=== PATIENT | female | born 1960 | race Caucasian/White ===

== ENCOUNTER 2023-06-26 07:06 | Day surgery (SDC) | payer MEDICARE ==
[~2023-06-26 07:06] MED LIST: Ak-Dilate OPHTHALMIC*** 1.065 ML, Cyclogyl 1% OPHTH SOL 1.065 ML, GATIFLOXACIN 0.5% OPH... OP ONE; BETADINE 5% OPHTHALMIC 30 ML OP ONE; Lactated Ringers 1,000 ML IV SCH; NON-FORMULARY ITEM OP ONE; TETRACAINE 0.5% STERI-UNIT SOL OP ONE; cefUROXime sodium 0.005 GM in Sodium Chloride Flush 30 ML*** 0.5 ML IJ ONE
[2023-06-26] MEDS ORDERED: Lactated Ringers 1,000 ML IV ONE (07:27)
[2023-06-26] MEDS ORDERED: Zofran 4 MG/2 ML VIAL IV PRN (09:00)
[2023-06-26] MEDS ORDERED: ACETAZOLAMIDE 250 MG TABLET PO ONE (09:00)
[2023-06-26] MEDS ORDERED: Epinephrine Preservative Free 1 MG/ML IJ ONE (09:00)
[2023-06-26] MEDS ORDERED: SUBLIMAZE 100 MCG/2 ML ONE (09:24)
[2023-06-26] MEDS ORDERED: DIPRIVAN 200 MG/20 ML IV ONE (09:24)
[2023-06-26] MEDS ORDERED: Versed 2 MG/2 ML Injection ONE (09:24)
[2023-06-26 10:05] VITALS: RESP 16; O2SAT 97
[2023-06-26 10:11] VITALS: BP 163/73; PULSE 79; TEMP 97.6
== END 2023-06-26 10:15 | disposition home or self-care (01) ==
LOC: SDC 07:06
PROVIDERS: ATTEND Ophthalmology
DX: H25.811 Combined forms of age-related cataract, right eye (principal)
CPT/HCPCS: C1780; J0171; J2250; J2704; J3010; A9270-GY

== ENCOUNTER 2023-07-29 07:15 | Day surgery (SDC) | payer MEDICARE ==
[2023-07-29] MEDS ORDERED: Epinephrine Preservative Free 1 MG/ML IJ ONE (07:16)
[2023-07-29 07:54] VITALS: RESP 18
[2023-07-29] MEDS ORDERED: Lactated Ringers 1,000 ML IV SCH (08:00)
[2023-07-29] MEDS ORDERED: Zofran 4 MG/2 ML VIAL IV PRN (09:00)
[2023-07-29] MEDS ORDERED: ACETAZOLAMIDE 250 MG TABLET PO ONE (09:00)
[2023-07-29] MEDS ORDERED: Versed 2 MG/2 ML Injection ONE (09:04)
[2023-07-29] MEDS ORDERED: DIPRIVAN 200 MG/20 ML IV ONE (09:04)
[2023-07-29] MEDS ORDERED: SUBLIMAZE 100 MCG/2 ML ONE (09:15)
[2023-07-29 09:28] VITALS: TEMP 96
[2023-07-29 09:48] VITALS: BP 166/82; PULSE 74; O2SAT 98
== END 2023-07-29 10:00 | disposition home or self-care (01) ==
LOC: SDC 07:15
PROVIDERS: ATTEND Ophthalmology
DX: H25.812 Combined forms of age-related cataract, left eye (principal)
CPT/HCPCS: C1780; J0171; J2250; J2704; J3010; A9270-GY

== ENCOUNTER 2024-08-06 11:51 | Emergency (ER) | payer MEDICARE, OTHER ==
--- NOTE | 2024-08-06 12:11 | ERPHSYRPT ---
- History of Present Illness Time Seen by Provider: 08/06/24 12:11 Source: patient, family Exam Limitations: no limitations Physician History: This is a 64-year-old white female patient of Dr. Hutchinson who feels weak and was coughing over the last 7 days. Her coughing is worse. She has not had a fever. She has been on Keflex for treatment of a urinary tract infection and she has a dose later today and then 2 doses tomorrow. Patient has a history of migraine headaches and hypothyroidism. She denies chest pain. She has not had any nausea vomiting or diarrhea symptoms. She has no abdominal pain. Patient has no history of documented cardiac disease. Timing/Duration: week(s) (1) Activites at Onset: none Pain Radiation: none Severity of Pain-Max: none Severity of Pain-Current: none Sexual intercourse history: non-contributory Modifying Factors: Improves With: coughing Associated Symptoms: denies symptoms Allergies/Adverse Reactions: No Known Drug Allergies Allergy (Verified 08/06/24 12:32) Home Medications: Ergocalciferol (Vitamin D2) [Vitamin D2] 1 tab PO WEEKLY 06/17/23 [History] Levothyroxine Sodium 88 Mcg [Synthroid 88 Mcg] 88 mcg PO DAILY 06/17/23 [History] Travel Risk - International Travel Have you traveled outside of the country in past 3 weeks: No - Emerging Infectious Disease Are you exhibiting symptoms associated with any current EIDs: Yes Symptoms: Cough: New Onset - Review of Systems Constitutional: No Symptoms Eyes: No Symptoms Ears, Nose, & Throat: No Symptoms Respiratory: Cough Cardiac: No Symptoms Abdominal/Gastrointestinal: No Symptoms Genitourinary Symptoms: No Symptoms Musculoskeletal: No Symptoms Skin: No Symptoms Neurological: No Symptoms Psychological: No Symptoms Endocrine: No Symptoms Hematologic/Lymphatic: No Symptoms Immunological/Allergic: No Symptoms All Other Systems: Reviewed and Negative - Past Medical History Pertinent Past Medical History: Yes Neurological History: No Pertinent History ENT History: Glaucoma Cardiac History: No Pertinent History Respiratory History: No Pertinent History Endocrine Medical History: Hypothyroidism Musculoskeletal History: No Pertinent History GI Medical History: No Pertinent History History: No Pertinent History Psycho-Social History: No Pertinent History Female Reproductive Disorders: No Pertinent History - Past Surgical History Past Surgical History: Yes Neuro Surgical History: No Pertinent History Cardiac: No Pertinent History Respiratory: No Pertinent History Gastrointestinal: No Pertinent History Genitourinary: No Pertinent History Musculoskeletal: Orthopedic Surgery Female Surgical History: Section Other Surgical History: right leg - Social History Smoking Status: Never smoker Exposure to second hand smoke: No Drug Use: none - Nursing Vital Signs Nursing Vital Signs: Initial Vital Signs Temperature 96.1 F 08/06/24 12:22 Pulse Rate 101 H 08/06/24 12:22 Respiratory Rate 18 08/06/24 12:22 Blood Pressure 156/114 08/06/24 12:22 O2 Sat by Pulse Oximetry 96 08/06/24 12:22 Pain Scale Pain Intensity 0 - Physical Exam General Appearance: no apparent distress, alert Eye Exam: PERRL/EOMI, eyes nml inspection Ears, Nose, Throat Exam: normal ENT inspection, moist mucous membranes Neck Exam: normal inspection, non-tender, supple, full range of motion Respiratory Exam: normal breath sounds, lungs clear, airway intact, No chest tenderness, No respiratory distress Cardiovascular Exam: regular rate/rhythm, normal heart sounds, normal peripheral pulses Gastrointestinal/Abdomen Exam: soft, normal bowel sounds, No tenderness Pelvic Exam: not done Rectal Exam: not done Back Exam: normal inspection, normal range of motion, No CVA tenderness, No vertebral tenderness Extremity Exam: normal inspection, normal range of motion, pelvis stable Neurologic Exam: alert, oriented x 3, cooperative, bin piler II-XII nml as tested, normal mood/affect, nml cerebellar function, nml station & gait, sensation nml Skin Exam: normal color, warm, dry Lymphatic Exam: No adenopathy SpO2 Interpretation: normal O2 Delivery: Room Air - Course Nursing assessment & vital signs reviewed: Yes Ordered Tests: Active Orders 24 hr Category Date Time Status CHEST 1 VIEW (PORTABLE) Stat Exams 08/06/24 12:58 Completed UA W/RFX UR CULTURE Stat Lab 08/06/24 12:22 Completed Lab/Rad Data: Laboratory Results 08/06/24 08/06/24 08/06/24 Range/Units 13:14 13:14 12:22 Urine Color Yellow (Yellow) Urine Appearance Clear (Clear) Urine pH 6.5 (4.6-8.0) Ur Specific [place] 1.010 (1.005-1.030) Urine Protein Negative (Negative) Urine Glucose (UA) Negative (Negative) mg/dL Urine Ketones 15 A (Negative) Urine Blood Negative (Negative) Urine Nitrite Negative (Negative) Urine Bilirubin Negative (Negative) Urine Urobilinogen 1.0 A (0.2) mg/dL Ur Leukocyte Esterase Negative (Negative) U Hyaline Cast (Auto) NONE SEEN (0-2) /LPF Urine Microscopic RBC 0-2 (0-5) /HPF Urine Microscopic WBC 0-2 (0-5) /HPF Ur Epithelial Cells None Seen (None Seen) /HPF Urine Bacteria None Seen (None Seen) /HPF Urine Culture Reflexed NO (NO) Influenza Type A Ag POSITIVE A (NEGATIVE) Influenza Type B Ag NEGATIVE (NEGATIVE) RSV (PCR) NEGATIVE (NEGATIVE) SARS-CoV-2 (PCR) NEGATIVE (NEGATIVE) Group A Strep Antibody NOT DETECTED (NEGATIVE) - Progress Progress: re-examined, unchanged Air Movement: good Progress Note: 08/06/24 13:31 My medical decision making and the assignment of low complexity to this patient's medical issue today is based on review of the patient's past medical history, review of the patient's medication list, reviewed patient drug allergy list, history present illness and physical findings on examination. The workup in this patient includes chest x-ray, urinalysis and viral swabs. Differential diagnosis includes but is not limited to viral illness, pneumonia 08/06/24 14:02 I interpreted the patient's laboratory data results. Based on laboratory data results, the patient test positive for influenza A. The chest x-ray was interpreted by the radiologist and I reviewed the impression the impression states normal heart and lungs. No new/acute findings Blood Culture(s) Obtained: No Antibiotics given: No Counseled pt/family regarding: lab results, diagnosis, rad results Medical Desision Making - Diagnostic Testing Diagnostic test were ordered, analyzed, and reviewed by me: Yes Radiological Interpretation: Reviewed by me, Teleradiologist Report - Risk of complications The pt has a mod risk of morbidity or mortality based on: Need for prescription drug management - Departure Departure Disposition: Home Clinical Impression: Influenza A H1N1 infection Condition: Stable Critical Care Time: No Referrals: PRAVIN HUTCHINSON DO [Primary Care Provider] - Follow up/PCP as directed Additional Instructions: Drink plenty fluids. Take your medications as prescribed. Call your primary care provider today, 08/06/2024 to make arrangement for follow-up appointment for further evaluation management. Prescriptions: Benzonatate 200 mg PO TID PRN #10 cap PRN Reason: Cough Prednisone 10 mg [Deltasone 10 mg] 10 mg PO TID #12 tablet Oseltamivir 75 mg [Tamiflu 75MG Capsule] 75 mg PO BID #10 cap
[2024-08-06 12:33] VITALS: TEMP 96.1; O2SAT 96
[2024-08-06 12:57] LABS: Appearance Clear (Clear); Bacteria None Seen /HPF (None Seen); Bilirubin Negative (Negative); Blood Negative (Negative); Epithelial Cells None Seen /HPF (None Seen); Glucose, Urine Negative (Negative); Hyaline Casts NONE SEEN /LPF (0-2); Ketones 15 (Negative); Leukocyte Esterase Negative (Negative); Nitrite Negative (Negative); Ph 6.5 (4.6-8.0); Protein,Urine Dip Negative (Negative); RBC 0-2 /HPF (0-5); WBC 0-2 /HPF (0-5)
--- NOTE | 2024-08-06 13:15 | XRAY ---
Indication: Weakness. Cough. Comparison: August 14, 2011 Portable chest again demonstrates normal heart and lungs. Bony thorax intact again with osteopenia and mild degenerative changes. No new/acute findings.
[2024-08-06 13:52] LABS: INFLUENZA B NEGATIVE (NEGATIVE); RESPIRATORY SYNCTIAL VIRUS NEGATIVE (NEGATIVE); SARS-CoV-2 Xpert Express NEGATIVE (NEGATIVE)
[2024-08-06 13:59] LABS: INFLUENZA A POSITIVE (NEGATIVE)
[2024-08-06 14:16] VITALS: BP 136/83; PULSE 83; RESP 10
== END 2024-08-06 14:22 | disposition home or self-care (01) ==
LOC: ED 11:51
DX: J09.X2 Influenza due to identified novel influenza A virus with other respiratory manifestations (principal); R05.9 Cough, unspecified; R53.1 Weakness
CPT/HCPCS: 0241U; 71045; 81001; 87651; 99284; 99283

== ENCOUNTER 2024-09-28 21:05 | Observation (INO) | payer MEDICARE, OTHER ==
[2024-09-28 23:21] LABS: Absolute Neutrophil Ct (ANC) 4.29 x10^3/uL (1.56-6.13); BASOPHIL % 0.6 % (0.1-1.2); Basophil (Absolute #) 0.04 x10^3/uL (0.01-0.08); Eosinophil % 1.9 % (0.7-5.8); Eosinophil (Absolute #) 0.14 x10^3/uL (0.04-0.36); Hematocrit 36.7 % (34.1-44.9); Hemoglobin 12.3 g/dL (11.2-15.7); IMMATURE GRAN # 0.02 x10^3u/L (0.001-0.031); IMMATURE GRAN % 0.3 % (0.001-0.429); Lymphocyte (Absolute #) 2.12 x10^3/uL (1.18-3.74); Lymphocytes % 29.4 % (19.3-51.7); Mean Cell Volume 98.4 fL (79.4-94.8); Mean Corpuscular Hgb Concent. 33.5 g/dL (32.2-35.5); Mean Platelet Volume 11.3 fL (9.4-12.3); Monocyte (Absolute #) 0.59 x10^3/uL (0.24-0.86); Monocytes % 8.2 % (4.7-12.5); Neutrophil % 59.6 % (34.0-71.1); Platelet Count 221 x10^3/uL (182-369); Red Blood Count 3.73 x10^6/uL (3.93-5.22); Red Cell Distribution Width 12.6 % (11.7-14.4); White Blood Count 7.2 x10^3/uL (3.98-10.04)
--- NOTE | 2024-09-28 23:35 | XRAY ---
CLINICAL HISTORY: Paresthesia COMPARISON: None. TECHNIQUE: Multiple axial images are obtained from the skull base to the vertex without contrast. CT scan was performed according to ALARA (as low as reasonable achievable). FINDINGS: No evidence of space occupying lesion, hemorrhage, edema, mass effect, midline shift, extra axial collection, or hydrocephalus is noted. Basal cisterns are symmetric and normal in size and configuration. There are scattered periventricular hypodensities as can be seen with chronic microvascular ischemic changes. The polanco-white matter differentiation is preserved. Visualized paranasal sinuses and mastoid air cells are well aerated. Orbital contents are within normal limits. Bony structures are intact. IMPRESSION: 1. No evidence of acute intracranial abnormality is demonstrated. 2. Chronic microvascular ischemic changes. Electronically Signed by: Mauro Luis MD. (09/28/2024 23:31:06 EST)
[2024-09-28 23:36] LABS: ALBUMIN 3.9 g/dL (3.5-5.0); ANION GAP 11.1 MEQ/L (5-15); BILIRUBIN,TOTAL 0.9 mg/dL (0.2-1.3); Calcium 9.4 mg/dL (8.4-10.2); Creatinine 1 1.11 mg/dL (0.52-1.04); EST GLOMERULAR FILTRATION RATE 55.2 ML/MIN; Potassium 4.6 mmol/L (3.5-5.1)
[2024-09-28 23:48] LABS: NT PRO BNPII 221 pg/mL (<300); TROPONIN < 0.012 ng/mL (0.000-0.033)
[2024-09-29 00:04] LABS: Appearance Clear (Clear); Bacteria None Seen /HPF (None Seen); Bilirubin Negative (Negative); Blood Negative (Negative); Epithelial Cells None Seen /HPF (None Seen); Glucose, Urine Negative (Negative); Hyaline Casts NONE SEEN /LPF (0-2); Ketones Negative (Negative); Leukocyte Esterase Negative (Negative); Nitrite Negative (Negative); Protein,Urine Dip Negative (Negative); RBC 0-2 /HPF (0-5); WBC 0-2 /HPF (0-5)
--- NOTE | 2024-09-29 00:30 | ERPHSYRPT ---
- History of Present Illness Time Seen by Provider: 09/28/24 22:30 Source: patient Exam Limitations: no limitations Patient Subjective Stated Complaint: The left side of my lip will go numb and then my left hand will go numb. Triage Nursing Assessment: Pt ambulated into ER without diff. Pt c/o having a couple episodes this evening where the left side of her lip (by the corner) went numb and then noticed numbness in her left hand. Pt states that she was still able to move her hand and mouth, it just felt asleep. Pt denies any of these symptoms at this time. Pt is speaking clear and appropriate, is alert and oriented x4, denies any headache or loc. Physician History: Patient is a 64-year-old female presents to our ED for evaluation of numbness to her lip face and left upper extremity. Patient states that she is able to move her extremity but it feels as though it is "going to sleep". Patient denies a history of the same. Symptoms lasted several minutes. Patient currently feels "normal. No numbness at the present time. The symptoms were not associated with any neuro cardiovascular symptomology. No associated chest pain or shortness of breath. No nausea vomiting or diaphoresis. No slurred speech. No blurred vision dizziness or headache. Patient currently asymptomatic. She voices no other complaints or concerns at this time. Portions of this note were created with voice recognition technology. There may be grammatical, spelling, punctuation or sound alike errors Timing/Duration: today Severity: moderate Modifying Factors: Improves With: nothing Associated Symptoms: denies symptoms Allergies/Adverse Reactions: No Known Drug Allergies Allergy (Verified 09/28/24 22:47) Home Medications: Ergocalciferol (Vitamin D2) [Vitamin D2] 1 tab PO WEEKLY 06/17/23 [History] Levothyroxine Sodium 88 Mcg [Synthroid 88 Mcg] 88 mcg PO DAILY 06/17/23 [History] Brimonidine Tartrate/Timolol [Brimonidine-Timolol 0.2%-0.5%] 1 drop BID 09/28/24 [History] Dorzolamide HCl/Timolol Maleat [Dorzolamide-Timolol Eye Drops] 1 drop BID 09/28 [History] Latanoprost 1 drop HS 02/18/25 [History] Hx Tetanus, Diphtheria Vaccination/Date Given: Yes Hx Influenza Vaccination/Date Given: Yes Hx Pneumococcal Vaccination/Date Given: Yes Travel Risk - International Travel Have you traveled outside of the country in past 3 weeks: No - Emerging Infectious Disease Are you exhibiting symptoms associated with any current EIDs: No Symptoms: Cough: New Onset - Review of Systems Constitutional: No Symptoms, No Fever, No Chills Eyes: No Symptoms Ears, Nose, & Throat: No Symptoms Respiratory: No Symptoms, No Cough, No Dyspnea Cardiac: No Symptoms, No Chest Pain, No Edema, No Syncope Abdominal/Gastrointestinal: No Symptoms, No Abdominal Pain, No Nausea, No Vomiting, No Diarrhea Genitourinary Symptoms: No Symptoms, No Dysuria Musculoskeletal: No Symptoms, No Back Pain, No Neck Pain Skin: No Symptoms, No Rash Neurological: No Symptoms, No Dizziness, No Focal Weakness, No Sensory Changes Psychological: No Symptoms Endocrine: No Symptoms Hematologic/Lymphatic: No Symptoms Immunological/Allergic: No Symptoms All Other Systems: Reviewed and Negative - Past Medical History Pertinent Past Medical History: Yes Neurological History: No Pertinent History ENT History: Glaucoma Cardiac History: No Pertinent History Respiratory History: No Pertinent History Endocrine Medical History: Hypothyroidism Musculoskeletal History: No Pertinent History GI Medical History: No Pertinent History History: No Pertinent History Psycho-Social History: No Pertinent History Female Reproductive Disorders: No Pertinent History - Past Surgical History Past Surgical History: Yes Neuro Surgical History: No Pertinent History Cardiac: No Pertinent History Respiratory: No Pertinent History Gastrointestinal: No Pertinent History Genitourinary: No Pertinent History Musculoskeletal: Orthopedic Surgery Female Surgical History: Section Other Surgical History: right leg - Social History Smoking Status: Never smoker Exposure to second hand smoke: No Drug Use: none - Social Determinants of Health Will the patient participate in the screening: Yes Do you worry about a steady place to live?: No Do you have any problems with any of the following?: No known problems In the past 12 months,have you had to go without utilities?: No Transportation Issues: No Has anyone in your support network made you feel unsafe?: No Have you or anyone in your house had to go w/o enough food: No - Nursing Vital Signs Nursing Vital Signs: Initial Vital Signs O2 Sat by Pulse Oximetry 98 09/28/24 22:26 Pain Scale Pain Intensity 0 - Physical Exam General Appearance: no apparent distress, alert Eye Exam: PERRL/EOMI, eyes nml inspection Ears, Nose, Throat Exam: normal ENT inspection, TMs normal, pharynx normal, moist mucous membranes Neck Exam: normal inspection, non-tender, supple, full range of motion Respiratory Exam: normal breath sounds, lungs clear, airway intact, No respiratory distress Cardiovascular Exam: regular rate/rhythm, normal heart sounds, normal peripheral pulses Gastrointestinal/Abdomen Exam: soft, normal bowel sounds, No tenderness, No mass Back Exam: normal inspection, normal range of motion, No CVA tenderness, No vertebral tenderness Extremity Exam: normal inspection, normal range of motion, pelvis stable Neurologic Exam: alert, oriented x 3, cooperative, normal mood/affect, nml cerebellar function, nml station & gait, sensation nml, No motor deficits Skin Exam: normal color, warm, dry, No rash Lymphatic Exam: No adenopathy SpO2 Interpretation: normal SpO2: 99 O2 Delivery: Room Air - Course Nursing assessment & vital signs reviewed: Yes EKG Interpreted by Me: RATE (69), Sinus Rhythm, NORMAL AXIS, NORMAL INTERVALS, NORMAL QRS - CT Exams Head CT Interpretation: Tele-radiologist Report (No evidence of acute intracranial abnormality. Chronic microvascular ischemic changes) Ordered Tests: Active Orders 24 hr Category Date Time Status Chainstitch Pants Outseamer STAT Care 09/28/24 22:56 Active EKG-ER Only STAT Care 09/28/24 22:55 Active IV Insertion STAT Care 09/28/24 22:55 Active Pulse Oximetry (ED) STAT Care 09/28/24 22:55 Active CHEST 1 VIEW (PORTABLE) Stat Exams 09/28/24 22:56 Taken HEAD WITHOUT CONTRAST [CT] Stat Exams 09/28/24 22:57 Completed CBC W DIFF Stat Lab 09/28/24 23:19 Completed CMP Stat Lab 09/28/24 23:19 Completed NT PRO BNPII Stat Lab 09/28/24 23:19 Completed TROPONIN Q4H Lab 09/28/24 23:19 Completed TROPONIN Q4H Lab 09/29/24 03:00 Ordered TROPONIN Q4H Lab 09/29/24 07:00 Ordered UA W/RFX UR CULTURE Stat Lab 09/28/24 23:42 Completed Transfer Order Routine Transfer 09/29/24 Ordered Medication Summary Discontinued Medications Generic Name Dose Route Start Last Admin Trade Name Freq PRN Reason Stop Dose Admin Aspirin 324 mg 09/29/24 00:50 Aspirin 81 Mg Tab.Chew PO 09/29/24 00:51 STAT ONE Lab/Rad Data: Laboratory Result Diagrams 09/28/24 23:19 09/28/24 23:19 Laboratory Results 09/28/24 09/28/24 09/28/24 Range/Units 23:42 23:19 23:19 WBC (3.98-10.04) x10^3/uL RBC (3.93-5.22) x10^6/uL Hgb (11.2-15.7) g/dL Hct (34.1-44.9) % MCV (79.4-94.8) fL MCH (25.6-32.2) pg MCHC (32.2-35.5) g/dL RDW (11.7-14.4) % Plt Count (182-369) x10^3/uL MPV (9.4-12.3) fL Gran % (34.0-71.1) % Immature Gran % (Auto) (0.001-0.429) % Nucleat RBC Rel Count (0.00-0.2) % Eos # (Auto) (0.04-0.36) x10^3/uL Immature Gran # (Auto) (0.001-0.031) x10^3u/L Absolute Lymphs (auto) (1.18-3.74) x10^3/uL Absolute Monos (auto) (0.24-0.86) x10^3/uL Absolute Nucleated RBC (0.00-0.012) x10^3u/L Lymphocytes % (19.3-51.7) % Monocytes % (4.7-12.5) % Eosinophils % (0.7-5.8) % Basophils % (0.1-1.2) % Absolute Granulocytes (1.56-6.13) x10^3/uL Basophils # (0.01-0.08) x10^3/uL Sodium 143 (135-145) mmol/L Potassium 4.6 (3.5-5.1) mmol/L Chloride 106 (98-107) mmol/L Carbon Dioxide 31 H (22-30) mmol/L Anion Gap 11.1 (5-15) MEQ/L BUN 19 H (7-17) mg/dL Creatinine 1.11 H (0.52-1.04) mg/dL Estimated GFR 55.2 ML/MIN Glucose 101 (74-106) mg/dL Calcium 9.4 (8.4-10.2) mg/dL Total Bilirubin 0.90 (0.2-1.3) mg/dL AST 26 (14-36) U/L ALT 17 (0-35) U/L Alkaline Phosphatase 81 (38-126) U/L Troponin I < 0.012 (0.000-0.033) ng/mL NT-Pro-B Natriuret Pep 221 (<300) pg/mL Serum Total Protein 7.0 (6.3-8.2) g/dL Albumin 3.9 (3.5-5.0) g/dL Urine Color Yellow (Yellow) Urine Appearance Clear (Clear) Urine pH 6.0 (4.6-8.0) Ur Specific [place] 1.020 (1.005-1.030) Urine Protein Negative (Negative) Urine Glucose (UA) Negative (Negative) mg/dL Urine Ketones Negative (Negative) Urine Blood Negative (Negative) Urine Nitrite Negative (Negative) Urine Bilirubin Negative (Negative) Urine Urobilinogen 1.0 A (0.2) mg/dL Ur Leukocyte Esterase Negative (Negative) U Hyaline Cast (Auto) NONE SEEN (0-2) /LPF Urine Microscopic RBC 0-2 (0-5) /HPF Urine Microscopic WBC 0-2 (0-5) /HPF Ur Epithelial Cells None Seen (None Seen) /HPF Urine Bacteria None Seen (None Seen) /HPF Urine Culture Reflexed NO (NO) 09/28/24 Range/Units 23:19 WBC 7.2 (3.98-10.04) x10^3/uL RBC 3.73 L (3.93-5.22) x10^6/uL Hgb 12.3 (11.2-15.7) g/dL Hct 36.7 (34.1-44.9) % MCV 98.4 H (79.4-94.8) fL MCH 33.0 H (25.6-32.2) pg MCHC 33.5 (32.2-35.5) g/dL RDW 12.6 (11.7-14.4) % Plt Count 221 (182-369) x10^3/uL MPV 11.3 (9.4-12.3) fL Gran % 59.6 (34.0-71.1) % Immature Gran % (Auto) 0.3 (0.001-0.429) % Nucleat RBC Rel Count 0.0 (0.00-0.2) % Eos # (Auto) 0.14 (0.04-0.36) x10^3/uL Immature Gran # (Auto) 0.02 (0.001-0.031) x10^3u/L Absolute Lymphs (auto) 2.12 (1.18-3.74) x10^3/uL Absolute Monos (auto) 0.59 (0.24-0.86) x10^3/uL Absolute Nucleated RBC 0.00 (0.00-0.012) x10^3u/L Lymphocytes % 29.4 (19.3-51.7) % Monocytes % 8.2 (4.7-12.5) % Eosinophils % 1.9 (0.7-5.8) % Basophils % 0.6 (0.1-1.2) % Absolute Granulocytes 4.29 (1.56-6.13) x10^3/uL Basophils # 0.04 (0.01-0.08) x10^3/uL Sodium (135-145) mmol/L Potassium (3.5-5.1) mmol/L Chloride (98-107) mmol/L Carbon Dioxide (22-30) mmol/L Anion Gap (5-15) MEQ/L BUN (7-17) mg/dL Creatinine (0.52-1.04) mg/dL Estimated GFR ML/MIN Glucose (74-106) mg/dL Calcium (8.4-10.2) mg/dL Total Bilirubin (0.2-1.3) mg/dL AST (14-36) U/L ALT (0-35) U/L Alkaline Phosphatase (38-126) U/L Troponin I (0.000-0.033) ng/mL NT-Pro-B Natriuret Pep (<300) pg/mL Serum Total Protein (6.3-8.2) g/dL Albumin (3.5-5.0) g/dL Urine Color (Yellow) Urine Appearance (Clear) Urine pH (4.6-8.0) Ur Specific [place] (1.005-1.030) Urine Protein (Negative) Urine Glucose (UA) (Negative) mg/dL Urine Ketones (Negative) Urine Blood (Negative) Urine Nitrite (Negative) Urine Bilirubin (Negative) Urine Urobilinogen (0.2) mg/dL Ur Leukocyte Esterase (Negative) U Hyaline Cast (Auto) (0-2) /LPF Urine Microscopic RBC (0-5) /HPF Urine Microscopic WBC (0-5) /HPF Ur Epithelial Cells (None Seen) /HPF Urine Bacteria (None Seen) /HPF Urine Culture Reflexed (NO) - Progress Progress: improved Progress Note: I spoke to teleneurologist. She advises hospitalization for TIA/stroke workup. Patient to receive aspirin 325 as well as atorvastatin 40 mg. Patient to be admitted for MRI/MRA without contrast. 09/29/24 00:49 Case discussed with hospitalist accepts admission to observation at 1:27 AM. Plan of care discussed with patient. She agrees to admission to [facility] for further evaluation and treatment. Portions of this note were created with voice recognition technology. There may be grammatical, spelling, punctuation or sound alike errors 64-year-old female presents to emergency department for evaluation of numbness to her face and arm. Physical exam otherwise nonremarkable. CT head negative for acute intracranial pathology. Laboratory workup essentially nonremarkable. Teleneuro consultation feels patient may have experienced a TIA. They are requesting hospitalization for MRI/MRA without contrast. Aspirin 325 administered. Neurologist states that blood pressure in 160s is acceptable/permissive hypertension. Initial troponin negative. Portions of this note were created with voice recognition technology. There may be grammatical, spelling, punctuation or sound alike errors Complexity of problem addressed is moderate acute complicated. No critical care time. Complexity of data reviewed and analyzed is extensive. Test ordered chest reviewed results analyzed and correlated clinically with history and physical exam. Management discussed with hospitalist who accepts admission to observation. Risk of complication and or risk of morbidity/mortality of patient management is high.. Patient requires hospitalization for further evaluation and treatment. Vital stable. Time spent to admit patient is approximately 15 minutes. Plan of care established for shared decision making. No social determinants of health present to impede follow-up. Portions of this note were created with voice recognition technology. There may be grammatical, spelling, punctuation or sound alike errors 09/29/24 01:27 09/29/24 01:29 Counseled pt/family regarding: lab results, diagnosis - Departure Departure Disposition: Observation Clinical Impression: TIA (transient ischemic attack), Numbness Condition: Stable Critical Care Time: No Referrals: PRAVIN HUTCHINSON, [Primary Care Provider] - Follow up/PCP as directed
--- NOTE | 2024-09-29 00:51 | PCM.CONS ---
History of Present Illness - Neuro Consultation Date of Consultation Date: 09/29/24 ED Arrival Date & Time: 09/28/24 21:05 Providers: Attending Provider: ED Provider: GREGORIO ARIAS Consulting Provider: WENDY CHOW MD cc:: The requesting physician will be sent a copy of the consult. - History of Present Illness HPI: The patient is a 64F Physician Signature This document was electronically signed by: Wendy Chow MD 09/29/2024 12:49 AM Consult Cover Page FROM: [employer], Call Back Number: [phone] SUBJECT: Consult Recommendations Date and Time of Report: 09/29/2024 12:49 AM ET Items Contained in this Document: Neurology Consult Note Consult Information Member Facility: [facility] Facility Consult ID: [id number] Facility Time Zone: ET Date and Time of Request: 09-29-2024 12:19 AM ET Requesting Clinician: DR. GREGORIO ARIAS Patient Name: JAMIE LOYD Date of : 1960 Gender: Female Patient identity was confirmed at the beginning of the consult with the patient/family/staff using two personal identifiers: Patient name and Reason for Consult Reason for Consult: Code Stroke TLKW less than 4.5 hours General Chief Complaint: stroke alert Patient Location and Admission Status: ED- Patient is not admitted Family Members and Medical Staff Present During Exam: RN History of Present Illness: Date patient last known well: 09/28/2024 Time patient last known well: 2029 Referring Site: [facility] Referring Provider: Dr. Arias Neurologist evaluation date: 09/29/2024 Neurologist call time: 1222 Neurologist on-cart time: 1226 Neurologist evaluation with patient time: 1226 MS. Loyd is a 64 yo F w/pmhx of cataracts, hypothyroidism who presents for L sided lip numbness and L hand numbness. She reports that her sx onset was slightly after 0830 PM 09/28. The sx onset was abrupt and her sx lasted <10 mins. She denies any weakness, speech changes, vision changes, headache. This has never happened before and she denies ever feeling neuro sx in the past. Otherwise has been in her normal state of health. She does not take any AP/AC. Number of Documented HPI Elements: 4+ Medical History Other Medical History: as noted in HPI Past Procedures: None Pertinent Family History: Non contributory Allergies Allergies: NKDA Medications Anti-Coagulants: None Anti-Platelets: None Other Medications: synthroid Social History Alcohol Use: None Drug Use: None Tobacco Use: None Vital Signs Temperature: Afebrile Blood Pressure (mmHg): 152/92 Heart Rate (bpm): 77 Respiration Rate (/min): 22 O2 Sat (%): 98 POC Glucose(mg/dL): 101 Date and Time: 09/29/2024 12:34:45 AM ET Review Of Systems General, Constitutional: All Negative Neurological: All Negative Psychiatric: All Negative Cardiovascular: All Negative Ears, Nose, Throat: All Negative Respiratory: All Negative Gastrointestinal: All Negative Genitourinary: All Negative Musculoskeletal: All Negative Endocrine: All Negative Hematologic, Lymphatic: All Negative Integumentary: All Negative Ophthalmology: All Negative Allergy, Immunology: All Negative NIH Stroke Scale NIH Stroke Scale Score: 0 1. Level of Consciousness: 0 : alert; keenly responsive. 1a. LOC Questions: 0 : Answers both questions correctly. 1b. LOC Commands: 0 : Performs both tasks correctly. 2. Best Gaze: 0 : Normal. 3. Visual: 0 : No visual loss. 4. Facial Palsy: 0 : Normal symmetrical movements. 5a. Motor Left Arm: 0 : No drift; limb holds 90 (or 45) degrees for full 10 seconds. 5b. Motor Right Arm : 0 : No drift; limb holds 90 (or 45) degrees for full 10 seconds. 6a. Motor Left Le : No drift; leg holds 30-degree position for full 5 seconds. 6b. Motor Right Le : No drift; leg holds 30-degree position for full 5 seconds. 7. Limb Ataxia: 0 : Absent. 8. Sensory: 0 : Normal; no sensory loss. 9. Best Language: 0 : No aphasia; normal. 10. Dysarthria: 0 : Normal. 11. Extinction and inattention (formerly Neglect) : 0 : No abnormality. NIHSS Entry Time: 09/29/2024 12:38:28 AM ET Exam Exam: PHYSICAL EXAMINATION EXAM: Constitutional: appearance normally developed Face: normocephalic and atraumatic Eyes: normal lids, normal conjunctiva Neck: supple Respiratory: normal effort Abdomen: non distended Skin: no rashes, lesions, or ulcers noted Psychiatric: normal mood and normal affect NEUROLOGIC EXAMINATION: Appearance: no acute distress Orientation: awake, alert and oriented x 3 Mental Status: alert Attention: normal Knowledge: appropriate Language: no aphasia Speech: no dysarthria Cranial Nerves: CN 2 - no visual defect on confrontation CN 3, 4, 6 - extra-ocular movements intact CN 5 - facial sensation intact CN 7 - no facial asymmetry CN 8 - intact hearing to voice CN 11 - good shoulder shrug CN 12 - tongue midline Motor: able to hold all limbs AG without any drift Gait: deferred Coordination: no ataxia with finger to nose testing or HTS Sensory: intact and symmetric to light touch Clinician assisting with exam: RN Labs and Imaging Labs available?: Yes WBC (mcL): 7.2 HGB (g/dL): 12.3 PLT (mcL): 221 Na (mEq/L): 143 K (mEq/L): 4.6 Cr (mg/dL): 1.11 CT Brain Findings: No acute changes MRI Brain Findings: Not Applicable Assessment and Recommendations Assessment: MS. Loyd is a 64 yo F w/pmhx of cataracts, hypothyroidism who presents for transient L lip and L hand numbness lasting <10 mins. She denies a history of any neuro sx in the past and does not take any AP/AC. No thrombolytics were administered due to resolution of sx. CTH was done showing no acute pathology. Her ABCD2 score is 2 (age >60 yo and BP >140/90) placing her in the low risk category. Recommendations: Recommend starting patient on ASA 325 mg daily for tx of low risk TIA. Permissive HTN up to SBP of 220mmHg for 24 hours then normalize (SBP < 140 and DBP <90) Check LDL, start atorvastatin 40mg (if LDL > 100, change to Lipitor 80mg) Check A1c (goal < 7%) Bedside dysphagia screen prior to oral intake MRI brain without contrast MRA head and MRA neck TTE Telemetry monitoring The patient will need OP neuro follow up on discharge in 2-4 weeks following discharge from the hospital Stroke risk factor modification, if relevant to patient, discussed including importance of smoking cessation, physical activity, nutrition, addressing sleep apnea, and importance of controlling blood pressure and blood glucose. Thank you for allowing us to participate in this patient's care. Please call [facility] with questions, concerns of change in the patient's neurological condition. This consult was done via secure telemedicine audio/visual platform. Patient identity verified and consent was obtained. Staff that participated with the visit included: DELMIS Geronimo Synchronous Audio-Visual Visit: Patient Consent Obtained?This visit was performed using real-time audio and video connection between my location and the patients location with the assistance of a surrogate at the patients location. Written or verbal consent was obtained from the patient/guardian to perform this visit using synchronous telemedicine technology. Any patient questions regarding the telemedicine interaction were answered. Disposition: Admit patient to telemetry or stroke unit Diagnosis Impression: Transient Ischemic Attack Case discussed with: Dr. Arias Inclusion Criteria Neurological deficit considered to be disabling within 4.5 h of ischemic stroke symptom onset or patient last known well: No BP < 185/110: Yes Glucose > 50 mg/dL: Yes Thrombolysis Recommendation Thrombolysis recommended?: No Reason Thrombolysis not recommended: Outside of window ICD-10 Code ICD-10 Code (Primary): R29.700 : NIHSS score 0 ICD-10 Code: G45.9 : Transient cerebral ischemic attack, unspecified ICD-10 Code: R20.0 : Anesthesia of skin Attestation Interaction Mode: Video & Phone Time of Phone Call : 09-29-2024 12:46 AM ET Time of Video Call : 09-29-2024 12:26 AM ET Interaction Attestation: Clinical telemedicine services delivered using HIPAA- compliant interactive video-audio telecommunications while the patient and the rendering provider were not in the same physical location. Written report was provided to the requesting provider. Evaluation Duration (mins): 30 Lincoln Timer Summary ED Arrival Date and Time: 09-27-2024 10:31 PM ET Date and Time of Request: 09-29-2024 12:19 AM ET Physician Signature This document was electronically signed by: Wendy Chow MD 09/29/2024 12:49 AM Review of Systems - Review of Systems Review of Systems (Narrative): Pertinent positive and negative findings as per HPI. All other systems negative. - Past Medical History Past Medical History: Yes Neurological History: No Pertinent History ENT History: Glaucoma Cardiac History: No Pertinent History Respiratory History: No Pertinent History Endocrine Medical History: Hypothyroidism Musculoskelatal History: No Pertinent History GI Medical History: No Pertinent History History: No Pertinent History Pyscho-Social History: No Pertinent History Reproductive Disorders: No Pertinent History - Past Surgical History Past Surgical History: Yes Neuro Surgical History: No Pertinent History Cardiac History: No Pertinent History Respiratory Surgery: No Pertinent History GI Surgical History: No Pertinent History Genitourinary Surgical Hx: No Pertinent History Musculskeletal Surgical Hx: Orthopedic Surgery Female Surgical History: Section Other Surgical History: right leg - Social History Smoking Status: Never smoker Exposure to second hand smoke: No Alcohol: None Drug Use: none - Social Determinants of Health Will the patient participate in the screening: Yes Do you worry about a steady place to live?: No Do you have any problems with any of the following?: No known problems In the past 12 months,have you had to go without utilities?: No Have you or anyone in your house had to go without enough: No Transportation Issues: No Has anyone in your support network made you feel unsafe?: No Physical Exam - Vital Signs Vital Signs: Vital Signs - 24 hr 09/28/24 09/28/24 09/28/24 22:26 22:27 22:28 Temperature 97.5 F Pulse Rate 82 Respiratory 19 Rate Blood Pressure 190/76 O2 Sat by Pulse 98 98 99 Oximetry 09/28/24 09/28/24 09/28/24 22:30 22:55 23:00 Temperature Pulse Rate 66 73 Respiratory 24 17 Rate Blood Pressure 174/77 148/74 O2 Sat by Pulse 98 97 97 Oximetry 09/28/24 09/28/24 09/29/24 23:13 23:30 00:00 Temperature Pulse Rate 80 68 80 Respiratory 22 16 28 H Rate Blood Pressure 191/76 174/57 151/92 O2 Sat by Pulse 97 97 96 Oximetry 09/29/24 09/29/24 09/29/24 00:30 00:31 00:33 Temperature Pulse Rate 73 87 Respiratory 24 17 Rate Blood Pressure 168/133 181/103 O2 Sat by Pulse 99 97 99 Oximetry - NIHSS Stroke Scale Date Completed: 09/28/24 Time Stroke Scale Completed: 22:43 Results - Labs Lab/Micro Results: Lab Results-Last 24 Hours 09/28/24 09/28/24 09/28/24 Range/Units 23:19 23:19 23:19 WBC 7.2 (3.98-10.04) x10^3/uL RBC 3.73 L (3.93-5.22) x10^6/uL Hgb 12.3 (11.2-15.7) g/dL Hct 36.7 (34.1-44.9) % MCV 98.4 H (79.4-94.8) fL MCH 33.0 H (25.6-32.2) pg MCHC 33.5 (32.2-35.5) g/dL RDW 12.6 (11.7-14.4) % Plt Count 221 (182-369) x10^3/uL MPV 11.3 (9.4-12.3) fL Gran % 59.6 (34.0-71.1) % Immature Gran % (Auto) 0.3 (0.001-0.429) % Nucleat RBC Rel Count 0.0 (0.00-0.2) % Eos # (Auto) 0.14 (0.04-0.36) x10^3/uL Immature Gran # (Auto) 0.02 (0.001-0.031) x10^3u/L Absolute Lymphs (auto) 2.12 (1.18-3.74) x10^3/uL Absolute Monos (auto) 0.59 (0.24-0.86) x10^3/uL Absolute Nucleated RBC 0.00 (0.00-0.012) x10^3u/L Lymphocytes % 29.4 (19.3-51.7) % Monocytes % 8.2 (4.7-12.5) % Eosinophils % 1.9 (0.7-5.8) % Basophils % 0.6 (0.1-1.2) % Absolute Granulocytes 4.29 (1.56-6.13) x10^3/uL Basophils # 0.04 (0.01-0.08) x10^3/uL Sodium 143 (135-145) mmol/L Potassium 4.6 (3.5-5.1) mmol/L Chloride 106 (98-107) mmol/L Carbon Dioxide 31 H (22-30) mmol/L Anion Gap 11.1 (5-15) MEQ/L BUN 19 H (7-17) mg/dL Creatinine 1.11 H (0.52-1.04) mg/dL Estimated GFR 55.2 ML/MIN Glucose 101 (74-106) mg/dL Calcium 9.4 (8.4-10.2) mg/dL Total Bilirubin 0.90 (0.2-1.3) mg/dL AST 26 (14-36) U/L ALT 17 (0-35) U/L Alkaline Phosphatase 81 (38-126) U/L Troponin I < 0.012 (0.000-0.033) ng/mL NT-Pro-B Natriuret Pep 221 (<300) pg/mL Serum Total Protein 7.0 (6.3-8.2) g/dL Albumin 3.9 (3.5-5.0) g/dL Urine Color (Yellow) Urine Appearance (Clear) Urine pH (4.6-8.0) Ur Specific [place] (1.005-1.030) Urine Protein (Negative) Urine Glucose (UA) (Negative) mg/dL Urine Ketones (Negative) Urine Blood (Negative) Urine Nitrite (Negative) Urine Bilirubin (Negative) Urine Urobilinogen (0.2) mg/dL Ur Leukocyte Esterase (Negative) U Hyaline Cast (Auto) (0-2) /LPF Urine Microscopic RBC (0-5) /HPF Urine Microscopic WBC (0-5) /HPF Ur Epithelial Cells (None Seen) /HPF Urine Bacteria (None Seen) /HPF Urine Culture Reflexed (NO) 09/28/24 Range/Units 23:42 WBC (3.98-10.04) x10^3/uL RBC (3.93-5.22) x10^6/uL Hgb (11.2-15.7) g/dL Hct (34.1-44.9) % MCV (79.4-94.8) fL MCH (25.6-32.2) pg MCHC (32.2-35.5) g/dL RDW (11.7-14.4) % Plt Count (182-369) x10^3/uL MPV (9.4-12.3) fL Gran % (34.0-71.1) % Immature Gran % (Auto) (0.001-0.429) % Nucleat RBC Rel Count (0.00-0.2) % Eos # (Auto) (0.04-0.36) x10^3/uL Immature Gran # (Auto) (0.001-0.031) x10^3u/L Absolute Lymphs (auto) (1.18-3.74) x10^3/uL Absolute Monos (auto) (0.24-0.86) x10^3/uL Absolute Nucleated RBC (0.00-0.012) x10^3u/L Lymphocytes % (19.3-51.7) % Monocytes % (4.7-12.5) % Eosinophils % (0.7-5.8) % Basophils % (0.1-1.2) % Absolute Granulocytes (1.56-6.13) x10^3/uL Basophils # (0.01-0.08) x10^3/uL Sodium (135-145) mmol/L Potassium (3.5-5.1) mmol/L Chloride (98-107) mmol/L Carbon Dioxide (22-30) mmol/L Anion Gap (5-15) MEQ/L BUN (7-17) mg/dL Creatinine (0.52-1.04) mg/dL Estimated GFR ML/MIN Glucose (74-106) mg/dL Calcium (8.4-10.2) mg/dL Total Bilirubin (0.2-1.3) mg/dL AST (14-36) U/L ALT (0-35) U/L Alkaline Phosphatase (38-126) U/L Troponin I (0.000-0.033) ng/mL NT-Pro-B Natriuret Pep (<300) pg/mL Serum Total Protein (6.3-8.2) g/dL Albumin (3.5-5.0) g/dL Urine Color Yellow (Yellow) Urine Appearance Clear (Clear) Urine pH 6.0 (4.6-8.0) Ur Specific [place] 1.020 (1.005-1.030) Urine Protein Negative (Negative) Urine Glucose (UA) Negative (Negative) mg/dL Urine Ketones Negative (Negative) Urine Blood Negative (Negative) Urine Nitrite Negative (Negative) Urine Bilirubin Negative (Negative) Urine Urobilinogen 1.0 A (0.2) mg/dL Ur Leukocyte Esterase Negative (Negative) U Hyaline Cast (Auto) NONE SEEN (0-2) /LPF Urine Microscopic RBC 0-2 (0-5) /HPF Urine Microscopic WBC 0-2 (0-5) /HPF Ur Epithelial Cells None Seen (None Seen) /HPF Urine Bacteria None Seen (None Seen) /HPF Urine Culture Reflexed NO (NO) - Radiology Orders Radiology Orders: Radiology Procedures Category Date Time Status CHEST 1 VIEW (PORTABLE) Stat Exams 09/28/24 22:56 Taken HEAD WITHOUT CONTRAST [CT] Stat Exams 09/28/24 22:57 Completed Impressions & Recommendations - ED Arrival Time ED Arrival Date & Time: ED Arrival Date and Time 09/28/24 21:05 Last known well time: - NIHSS IV Thrombolysis Standard of Care: IV thrombolysis as a standard of care in acute stroke discussed with GREGORIO CARABALLO. Risk, benefits, and options of IV thrombolytic therapy for acute ischemic stroke were discussed with the patient/family JAMIE LOYD. We discussed that use of IV tenecteplase is in line with national stroke guidelines. We discussed that risks of IV thrombolytic use include intracranial hemorrhage, other fatal bleeding risks, and angioedema. Alternatives of treatment, including not proceeding with thrombolytic therapy were discussed. - Recommendations Recommendations: -Neuro checks, NIHSS, vital signs monitoring as per post tenecteplase protocol -Repeat non contrast head CT or noncontrast MRI brain 24 hours after IV thrombolyltic administration. -Obtain STAT non contrast head CT if there are new neurological deficits, worsening of current deficits, or with complaint of severe headache. Notify Neurology INGE of changes in neurological exam. -Nicardipine gtt as needed to maintain BP< 180/105 x 24hr post tenecteplase administration. -Monitor for angioedema -SCD's for DVT prophylaxis. Work up: -Basic labs (CBC, BMP, TSH+T4) if not done already. -INR,PTT if not done already -Fasting Lipid Panel and Hgb A1c -Transthroacic echocardiogram [with bubble study] -EKG + Telemetry- monitor for A-FIB Secondary Stroke Prevention -Hold off on antiplatelet therapy x 24 hr post IV thrombolytic therapy Decision to initiate antiplatelet therapy, or anticoagulation if needed, will be based on repeat imaging at 24 hour post thrombolytic administration. -If not medical contraindication, start high intensity statin. Eg. Atrovastatin 80 mg daily Risk Factor Management -HTN control: BP <180/105 for first 24 hr post tenecteplase -If diabetic, optimize glucose control: long term care pharmacist goal HgA1c <7 -HLD control: Long-term goal LDL <70. High intensity statin recommended. Moderate intensity statin in patients > 75 years. -Smoking Alcohol Use Drug use cessation counseling Stroke Rehabilitation: -Physical therapy, occupational therapy, speech therapy consults -Social work and case management consults for help with discharge needs. Impression and recommendation were discussed with Dr. GREGORIO ARIAS Thank you for allowing us to participate in this patient's care. Please call [facility] with questions, concerns, or change in patient's neurological status. This consult was performed via secure telemedicine audio/visual platform with [ ] RN assisting at bedside. Patient identity verified and consent obtained. TIQ recieved at [ ] Neuro Cart Time: Delays in Patient Encounter: Assessment & Plan - Encounter Encounter: "The entirety of this encounter was performed via Telemedicine using audio and visual "
[2024-09-29] MEDS ORDERED: BABY ASPIRIN 81 MG CHEW ONE (01:44)
[2024-09-29] MEDS: BABY ASPIRIN 81 MG CHEW PO ONE (01:45)
[2024-09-29] MEDS ORDERED: TYLENOL 325 MG PO PRN (03:54)
[2024-09-29 04:15] LABS: ANION GAP 12.4 MEQ/L (5-15); Calcium 9.2 mg/dL (8.4-10.2); Creatinine 1 1.03 mg/dL (0.52-1.04); EST GLOMERULAR FILTRATION RATE 60.3 ML/MIN; Potassium 4.5 mmol/L (3.5-5.1)
[2024-09-29 04:21] LABS: Hematocrit 35.1 % (34.1-44.9); Mean Cell Volume 98.3 fL (79.4-94.8); Mean Corpuscular Hemoglobin 33.6 pg (25.6-32.2); Mean Corpuscular Hgb Concent. 34.2 g/dL (32.2-35.5); Mean Platelet Volume 11.5 fL (9.4-12.3); Platelet Count 214 x10^3/uL (182-369); Red Blood Count 3.57 x10^6/uL (3.93-5.22); White Blood Count 6.2 x10^3/uL (3.98-10.04)
[2024-09-29 05:08] LABS: TSH, 3RD Generation 2.833 mIU/L (0.470-4.680)
--- NOTE | 2024-09-29 05:51 | PCM.HP ---
History of Present Illness - Chief Complaint Chief Complaint: lip, hand numbness Date: 09/29/24 History of Present Illness: 64-year-old woman with history of hypothyroidism, who presents with left hand and face numbness. Patient has noted 4-5 episodes throughout the day today of sudden left sided perioral numbness and left hand numbness, with each episode lasting under a minute. No associated weakness, or any other sensory deficits. Denies dysarthria or diplopia. Has not had any further episodes since arriving at the hospital, and no prior history of similar episodes or any other cerebrovascular disease. Denies any recent fevers, cough, sore throat, ear fullness, chest pain, nausea, dysuria, or diarrhea. - Review of Systems All Other Systems: Reviewed and Negative Medications & Allergies Home Medications: Home Medication List Ergocalciferol (Vitamin D2) [Vitamin D2] 1 tab PO WEEKLY 06/17/23 [History Confirmed 09/28/24] Levothyroxine Sodium 88 Mcg [Synthroid 88 Mcg] 88 mcg PO DAILY 06/17/23 [History Confirmed 09/28/24] Brimonidine Tartrate/Timolol [Brimonidine-Timolol 0.2%-0.5%] 1 drop BID 09/28/24 [History Confirmed 09/28/24] Dorzolamide HCl/Timolol Maleat [Dorzolamide-Timolol Eye Drops] 1 drop BID 09/28/24 [History Confirmed 09/28/24] Latanoprost 1 drop HS 09/28/24 [History Confirmed 09/28/24] Allergies/Adverse Reactions: Allergies Allergy/AdvReac Type Severity Reaction Status Date / Time No Known Drug Allergies Allergy Verified 09/28/24 22:47 - Past Medical History Past Medical History: Yes Neurological History: No Pertinent History ENT History: Glaucoma Cardiac History: No Pertinent History Respiratory History: No Pertinent History Endocrine Medical History: Hypothyroidism Musculoskelatal History: No Pertinent History GI Medical History: No Pertinent History History: No Pertinent History Pyscho-Social History: No Pertinent History Reproductive Disorders: No Pertinent History - Past Surgical History Past Surgical History: Yes Neuro Surgical History: No Pertinent History Cardiac History: No Pertinent History Respiratory Surgery: No Pertinent History GI Surgical History: No Pertinent History Genitourinary Surgical Hx: No Pertinent History Musculskeletal Surgical Hx: Orthopedic Surgery Female Surgical History: Section Other Surgical History: right leg Significant Family History: heart disease (Father) - Social History Smoking Status: Never smoker Exposure to second hand smoke: No Alcohol: None Drug Use: none - Social Determinants of Health Will the patient participate in the screening: Yes Do you worry about a steady place to live?: No Do you have any problems with any of the following?: No known problems In the past 12 months,have you had to go without utilities?: No Have you or anyone in your house had to go without enough: No Transportation Issues: No Has anyone in your support network made you feel unsafe?: No Does the patient want assistance with any of the above?: No - Physical Exam Vital Signs: Vital Signs - 24 hr Temp Pulse Resp BP BP Pulse Ox 09/29/24 02:57 98.3 F 78 20 164/72 97 09/29/24 02:00 75 18 173/109 99 09/29/24 01:37 99 09/29/24 01:30 72 17 153/103 98 09/29/24 01:00 72 18 167/97 98 09/29/24 00:33 87 17 181/103 99 09/29/24 00:31 73 24 168/133 97 09/29/24 00:00 80 28 H 151/92 96 09/28/24 23:30 68 16 174/57 97 09/28/24 23:13 80 22 191/76 97 09/28/24 23:00 73 17 148/74 97 09/28/24 22:55 97 09/28/24 22:30 66 24 174/77 98 09/28/24 22:28 97.5 F 82 19 190/76 99 09/28/24 22:27 98 09/28/24 22:26 98 Physical Exam GEN: Sitting up in bed in no acute distress. HENT: Normocephalic, atraumatic. Moist mucous membranes. EYES: Normal inspection, anicteric sclera, extraocular movements intact. NECK: Supple, full range of motion CV: Regular rate and rhythm, no murmurs, no gallops. No JVD or edema. PULM: Clear to auscultation bilaterally, no work of breathing. On room air. ABD: Nondistended, nontender. MSK: No joint effusions, full range of motion SKIN: No rashes, normal color. NEURO: Face symmetric, no focal motor or sensory deficits. PSYCH: Alert, oriented x 3 Results - Labs Lab/Micro Results: Lab Results-Last 24 Hours 09/28/24 09/28/24 09/28/24 Range/Units 23:19 23:19 23:19 WBC 7.2 (3.98-10.04) x10^3/uL RBC 3.73 L (3.93-5.22) x10^6/uL Hgb 12.3 (11.2-15.7) g/dL Hct 36.7 (34.1-44.9) % MCV 98.4 H (79.4-94.8) fL MCH 33.0 H (25.6-32.2) pg MCHC 33.5 (32.2-35.5) g/dL RDW 12.6 (11.7-14.4) % Plt Count 221 (182-369) x10^3/uL MPV 11.3 (9.4-12.3) fL Gran % 59.6 (34.0-71.1) % Immature Gran % (Auto) 0.3 (0.001-0.429) % Nucleat RBC Rel Count 0.0 (0.00-0.2) % Eos # (Auto) 0.14 (0.04-0.36) x10^3/uL Immature Gran # (Auto) 0.02 (0.001-0.031) x10^3u/L Absolute Lymphs (auto) 2.12 (1.18-3.74) x10^3/uL Absolute Monos (auto) 0.59 (0.24-0.86) x10^3/uL Absolute Nucleated RBC 0.00 (0.00-0.012) x10^3u/L Lymphocytes % 29.4 (19.3-51.7) % Monocytes % 8.2 (4.7-12.5) % Eosinophils % 1.9 (0.7-5.8) % Basophils % 0.6 (0.1-1.2) % Absolute Granulocytes 4.29 (1.56-6.13) x10^3/uL Basophils # 0.04 (0.01-0.08) x10^3/uL Sodium 143 (135-145) mmol/L Potassium 4.6 (3.5-5.1) mmol/L Chloride 106 (98-107) mmol/L Carbon Dioxide 31 H (22-30) mmol/L Anion Gap 11.1 (5-15) MEQ/L BUN 19 H (7-17) mg/dL Creatinine 1.11 H (0.52-1.04) mg/dL Estimated GFR 55.2 ML/MIN Glucose 101 (74-106) mg/dL Hemoglobin A1c (4.5-6.0) % Calcium 9.4 (8.4-10.2) mg/dL Total Bilirubin 0.90 (0.2-1.3) mg/dL AST 26 (14-36) U/L ALT 17 (0-35) U/L Alkaline Phosphatase 81 (38-126) U/L Troponin I < 0.012 (0.000-0.033) ng/mL NT-Pro-B Natriuret Pep 221 (<300) pg/mL Serum Total Protein 7.0 (6.3-8.2) g/dL Albumin 3.9 (3.5-5.0) g/dL Triglycerides (30-150) mg/dL Cholesterol (50-200) mg/dL LDL Cholesterol (30-100) mg/dL HDL Cholesterol (40-60) mg/dL Heart Disease Risk Ratio TSH 3rd Generation (0.470-4.680) mIU/L Urine Color (Yellow) Urine Appearance (Clear) Urine pH (4.6-8.0) Ur Specific [place] (1.005-1.030) Urine Protein (Negative) Urine Glucose (UA) (Negative) mg/dL Urine Ketones (Negative) Urine Blood (Negative) Urine Nitrite (Negative) Urine Bilirubin (Negative) Urine Urobilinogen (0.2) mg/dL Ur Leukocyte Esterase (Negative) U Hyaline Cast (Auto) (0-2) /LPF Urine Microscopic RBC (0-5) /HPF Urine Microscopic WBC (0-5) /HPF Ur Epithelial Cells (None Seen) /HPF Urine Bacteria (None Seen) /HPF Urine Culture Reflexed (NO) 09/28/24 09/29/24 09/29/24 Range/Units 23:42 03:39 04:08 WBC 6.2 (3.98-10.04) x10^3/uL RBC 3.57 L (3.93-5.22) x10^6/uL Hgb 12.0 (11.2-15.7) g/dL Hct 35.1 (34.1-44.9) % MCV 98.3 H (79.4-94.8) fL MCH 33.6 H (25.6-32.2) pg MCHC 34.2 (32.2-35.5) g/dL RDW 13.0 (11.7-14.4) % Plt Count 214 (182-369) x10^3/uL MPV 11.5 (9.4-12.3) fL Gran % (34.0-71.1) % Immature Gran % (Auto) (0.001-0.429) % Nucleat RBC Rel Count (0.00-0.2) % Eos # (Auto) (0.04-0.36) x10^3/uL Immature Gran # (Auto) (0.001-0.031) x10^3u/L Absolute Lymphs (auto) (1.18-3.74) x10^3/uL Absolute Monos (auto) (0.24-0.86) x10^3/uL Absolute Nucleated RBC (0.00-0.012) x10^3u/L Lymphocytes % (19.3-51.7) % Monocytes % (4.7-12.5) % Eosinophils % (0.7-5.8) % Basophils % (0.1-1.2) % Absolute Granulocytes (1.56-6.13) x10^3/uL Basophils # (0.01-0.08) x10^3/uL Sodium (135-145) mmol/L Potassium (3.5-5.1) mmol/L Chloride (98-107) mmol/L Carbon Dioxide (22-30) mmol/L Anion Gap (5-15) MEQ/L BUN (7-17) mg/dL Creatinine (0.52-1.04) mg/dL Estimated GFR ML/MIN Glucose (74-106) mg/dL Hemoglobin A1c (4.5-6.0) % Calcium (8.4-10.2) mg/dL Total Bilirubin (0.2-1.3) mg/dL AST (14-36) U/L ALT (0-35) U/L Alkaline Phosphatase (38-126) U/L Troponin I < 0.012 (0.000-0.033) ng/mL NT-Pro-B Natriuret Pep (<300) pg/mL Serum Total Protein (6.3-8.2) g/dL Albumin (3.5-5.0) g/dL Triglycerides (30-150) mg/dL Cholesterol (50-200) mg/dL LDL Cholesterol (30-100) mg/dL HDL Cholesterol (40-60) mg/dL Heart Disease Risk Ratio TSH 3rd Generation (0.470-4.680) mIU/L Urine Color Yellow (Yellow) Urine Appearance Clear (Clear) Urine pH 6.0 (4.6-8.0) Ur Specific [place] 1.020 (1.005-1.030) Urine Protein Negative (Negative) Urine Glucose (UA) Negative (Negative) mg/dL Urine Ketones Negative (Negative) Urine Blood Negative (Negative) Urine Nitrite Negative (Negative) Urine Bilirubin Negative (Negative) Urine Urobilinogen 1.0 A (0.2) mg/dL Ur Leukocyte Esterase Negative (Negative) U Hyaline Cast (Auto) NONE SEEN (0-2) /LPF Urine Microscopic RBC 0-2 (0-5) /HPF Urine Microscopic WBC 0-2 (0-5) /HPF Ur Epithelial Cells None Seen (None Seen) /HPF Urine Bacteria None Seen (None Seen) /HPF Urine Culture Reflexed NO (NO) 09/29/24 09/29/24 09/29/24 Range/Units 04:08 04:08 04:08 WBC (3.98-10.04) x10^3/uL RBC (3.93-5.22) x10^6/uL Hgb (11.2-15.7) g/dL Hct (34.1-44.9) % MCV (79.4-94.8) fL MCH (25.6-32.2) pg MCHC (32.2-35.5) g/dL RDW (11.7-14.4) % Plt Count (182-369) x10^3/uL MPV (9.4-12.3) fL Gran % (34.0-71.1) % Immature Gran % (Auto) (0.001-0.429) % Nucleat RBC Rel Count (0.00-0.2) % Eos # (Auto) (0.04-0.36) x10^3/uL Immature Gran # (Auto) (0.001-0.031) x10^3u/L Absolute Lymphs (auto) (1.18-3.74) x10^3/uL Absolute Monos (auto) (0.24-0.86) x10^3/uL Absolute Nucleated RBC (0.00-0.012) x10^3u/L Lymphocytes % (19.3-51.7) % Monocytes % (4.7-12.5) % Eosinophils % (0.7-5.8) % Basophils % (0.1-1.2) % Absolute Granulocytes (1.56-6.13) x10^3/uL Basophils # (0.01-0.08) x10^3/uL Sodium 143 (135-145) mmol/L Potassium 4.5 (3.5-5.1) mmol/L Chloride 106 (98-107) mmol/L Carbon Dioxide 30 (22-30) mmol/L Anion Gap 12.4 (5-15) MEQ/L BUN 19 H (7-17) mg/dL Creatinine 1.03 (0.52-1.04) mg/dL Estimated GFR 60.3 ML/MIN Glucose 113 H (74-106) mg/dL Hemoglobin A1c 4.96 (4.5-6.0) % Calcium 9.2 (8.4-10.2) mg/dL Total Bilirubin (0.2-1.3) mg/dL AST (14-36) U/L ALT (0-35) U/L Alkaline Phosphatase (38-126) U/L Troponin I (0.000-0.033) ng/mL NT-Pro-B Natriuret Pep (<300) pg/mL Serum Total Protein (6.3-8.2) g/dL Albumin (3.5-5.0) g/dL Triglycerides 149 (30-150) mg/dL Cholesterol 171 (50-200) mg/dL LDL Cholesterol 113 H (30-100) mg/dL HDL Cholesterol 39 L (40-60) mg/dL Heart Disease Risk Ratio 4.0 TSH 3rd Generation 2.833 (0.470-4.680) mIU/L Urine Color (Yellow) Urine Appearance (Clear) Urine pH (4.6-8.0) Ur Specific [place] (1.005-1.030) Urine Protein (Negative) Urine Glucose (UA) (Negative) mg/dL Urine Ketones (Negative) Urine Blood (Negative) Urine Nitrite (Negative) Urine Bilirubin (Negative) Urine Urobilinogen (0.2) mg/dL Ur Leukocyte Esterase (Negative) U Hyaline Cast (Auto) (0-2) /LPF Urine Microscopic RBC (0-5) /HPF Urine Microscopic WBC (0-5) /HPF Ur Epithelial Cells (None Seen) /HPF Urine Bacteria (None Seen) /HPF Urine Culture Reflexed (NO) - Radiology Impressions Radiology Exams & Impressions: Radiology Procedures Category Date Time Status CHEST 1 VIEW (PORTABLE) Stat Exams 09/28/24 22:56 Taken ECHO W/2D AND DOPPLER [US] Routine Exams 09/29/24 03:56 Ordered HEAD WITHOUT CONTRAST [CT] Stat Exams 09/28/24 22:57 Completed MRA BRAIN WITHOUT CONTRAST [MRI] Routine Exams 09/29/24 03:57 Ordered MRA NECK WITHOUT CONTRAST [MRI] Routine Exams 09/29/24 03:57 Ordered MRI BRAIN W/O CONTRAST [MRI] Routine Exams 09/29/24 03:[address] head without evidence of acute intracranial abnormality. Has chronic microvascular ischemic changes. Assessment/Plan (1) Numbness Current Visit: Yes Status: Acute Assessment & Plan: 64-year-old woman with a history of hypothyroidism, here with transient left hand and face numbness, concerning for TIA. ## Possible TIA unilateral symptoms, but in rather separate foci. Only lasting temporarily. No acute findings noted on CT. Teleneurology consulted, and concern for possible TIA. Place in observation, monitor on telemetry Obtain MRI brain, MRA head and neck Echocardiogram with bubble study Check lipid panel, A1c Neurochecks ## Hypothyroidism Continue home levothyroxine 80 mcg daily ## Glaucoma Continue home eyedrops CODE STATUS: Full code Prophylaxis: Low risk, encourage ambulation Diet: Regular Dispo: Place in observation, expect discharge back to home after imaging Entirety of encounter took place via live audio/video telemedicine device, with remote physician and patient in hospital, with the assistance of bedside nurse. Code(s): R20.0 - ANESTHESIA OF SKIN Telemedicine Encounter - Telemedicine Encounter Telemedicine Encounter: "The entirety of this encounter was performed via Telemedicine" This visit was performed using real-time audio and video connection between my location and thepatients locationwith the assistance of a surrogateat the patients location. Written or verbal consent was obtained from the patient/guardian to perform this visit usingsynchronoustelemedicine technology. Any patient questions regarding the telemedicine interaction were answered.
[2024-09-29] MEDS ORDERED: MEDICATION INTERVENTION MC SCH (07:15)
--- NOTE | 2024-09-29 08:54 | XRAY ---
Indication: Pain. Comparison: August 06, 2024 Portable chest inflated and remains clear. Heart not enlarged. Bony thorax intact again with osteopenia and degenerative changes. No new/acute findings.
[2024-09-29] MEDS: LIPITOR 40MG PO SCH (09:28)
[2024-09-29] MEDS: SYNTHROID 88 MCG PO SCH (09:28)
[2024-09-29] MEDS: COSOPT OPHTHALMIC 10 ML OP SCH (09:29)
[2024-09-29] MEDS: Ecotrin 325 MG PO SCH (09:56)
[2024-09-29] MEDS ORDERED: [UNRECOGNIZED DRUG - OTHER] OP SCH (10:00)
[2024-09-29] MEDS ORDERED: BRIMONIDINE TARTRATE OP SCH (10:00)
[2024-09-29] MEDS ORDERED: TIMOLOL OP SCH (10:00)
[2024-09-29] MEDS: Xalatan OP SCH (23:14)
[2024-09-30 05:15] LABS: Absolute Neutrophil Ct (ANC) 3.11 x10^3/uL (1.56-6.13); BASOPHIL % 0.5 % (0.1-1.2); Basophil (Absolute #) 0.03 x10^3/uL (0.01-0.08); Eosinophil % 2.2 % (0.7-5.8); Eosinophil (Absolute #) 0.13 x10^3/uL (0.04-0.36); Hematocrit 34.5 % (34.1-44.9); Hemoglobin 11.4 g/dL (11.2-15.7); IMMATURE GRAN # 0.01 x10^3u/L (0.001-0.031); IMMATURE GRAN % 0.2 % (0.001-0.429); Lymphocyte (Absolute #) 2.12 x10^3/uL (1.18-3.74); Lymphocytes % 36.1 % (19.3-51.7); Mean Cell Volume 100.3 fL (79.4-94.8); Mean Corpuscular Hemoglobin 33.1 pg (25.6-32.2); Mean Platelet Volume 11.3 fL (9.4-12.3); Monocyte (Absolute #) 0.47 x10^3/uL (0.24-0.86); Platelet Count 204 x10^3/uL (182-369); Red Blood Count 3.44 x10^6/uL (3.93-5.22); Red Cell Distribution Width 12.9 % (11.7-14.4); White Blood Count 5.9 x10^3/uL (3.98-10.04)
[2024-09-30 05:31] LABS: ALBUMIN 3.7 g/dL (3.5-5.0); ANION GAP 10.1 MEQ/L (5-15); BILIRUBIN,TOTAL 0.9 mg/dL (0.2-1.3); Calcium 8.7 mg/dL (8.4-10.2); Creatinine 1 0.99 mg/dL (0.52-1.04); EST GLOMERULAR FILTRATION RATE 63.3 ML/MIN; Potassium 3.9 mmol/L (3.5-5.1); Total Protein 6.8 g/dL (6.3-8.2)
[2024-09-30] MEDS: PATIENT OWN MEDICATION OP SCH (09:49)
[2024-09-30 10:00] VITALS: O2SAT 95
--- NOTE | 2024-09-30 10:44 | PCM.DS ---
Discharge Summary Date of Admission: 09/29/24 01:43 Date of Discharge: 09/30/24 Admitting Physician: NOLAN GANT MD Primary Care Provider: PRAVIN HUTCHINSON DO Allergies Allergies No Known Drug Allergies Allergy (Verified 09/28/24 22:47) Hospital Summary - Hospital Course Hospital Course: The patient is a 64-year-old woman with a history of hypothyroidism who presented with episodes of left hand and perioral numbness. She reported experiencing 4-5 brief episodes throughout the day, each lasting less than a minute, characterized by sudden left-sided perioral and hand numbness without associated weakness, sensory deficits, or other neurological symptoms such as dysarthria or diplopia. She denied any prior similar episodes or history of cerebrovascular disease. Upon presentation, the patient had no ongoing symptoms, and the episodes had resolved. She denied recent fevers, cough, sore throat, ear fullness, chest pain, nausea, dysuria, or diarrhea. The clinical evaluation did not reveal any acute findings suggestive of a stroke or other neurological emergency. Given the absence of any neurological deficits at the time of evaluation and her lack of risk factors for significant cerebrovascular events, the patient was observed and discharged in stable condition. She was advised to follow up with her primary care provider for further monitoring and evaluation of her symptoms, and to seek immediate medical attention if new or worsening symptoms arise. - Vitals & Intake/Output Vital Signs: Vital Signs Temperature 97.3 F 09/30/24 09:00 Pulse Rate 65 09/30/24 09:00 Respiratory Rate 16 09/30/24 09:00 Blood Pressure 142/69 09/30/24 09:00 O2 Sat by Pulse Oximetry 95 09/30/24 09:00 Intake & Output: Intake & Output 09/27/24 09/28/24 09/29/24 09/30/24 11:59 11:59 11:59 11:59 Intake Total 600 1800 Balance 600 1800 Weight 103 kg - Lab Result Diagrams: 09/30/24 05:08 09/30/24 05:08 Lab Results-Last 24 Hrs: Lab Results-Last 24 Hours 09/30/24 09/30/24 Range/Units 05:08 05:08 WBC 5.9 (3.98-10.04) x10^3/uL RBC 3.44 L (3.93-5.22) x10^6/uL Hgb 11.4 (11.2-15.7) g/dL Hct 34.5 (34.1-44.9) % MCV 100.3 H (79.4-94.8) fL MCH 33.1 H (25.6-32.2) pg MCHC 33.0 (32.2-35.5) g/dL RDW 12.9 (11.7-14.4) % Plt Count 204 (182-369) x10^3/uL MPV 11.3 (9.4-12.3) fL Gran % 53.0 (34.0-71.1) % Immature Gran % (Auto) 0.2 (0.001-0.429) % Nucleat RBC Rel Count 0.0 (0.00-0.2) % Eos # (Auto) 0.13 (0.04-0.36) x10^3/uL Immature Gran # (Auto) 0.01 (0.001-0.031) x10^3u/L Absolute Lymphs (auto) 2.12 (1.18-3.74) x10^3/uL Absolute Monos (auto) 0.47 (0.24-0.86) x10^3/uL Absolute Nucleated RBC 0.00 (0.00-0.012) x10^3u/L Lymphocytes % 36.1 (19.3-51.7) % Monocytes % 8.0 (4.7-12.5) % Eosinophils % 2.2 (0.7-5.8) % Basophils % 0.5 (0.1-1.2) % Absolute Granulocytes 3.11 (1.56-6.13) x10^3/uL Basophils # 0.03 (0.01-0.08) x10^3/uL Sodium 141 (135-145) mmol/L Potassium 3.9 (3.5-5.1) mmol/L Chloride 105 (98-107) mmol/L Carbon Dioxide 30 (22-30) mmol/L Anion Gap 10.1 (5-15) MEQ/L BUN 19 H (7-17) mg/dL Creatinine 0.99 (0.52-1.04) mg/dL Estimated GFR 63.3 ML/MIN Glucose 106 (74-106) mg/dL Calcium 8.7 (8.4-10.2) mg/dL Total Bilirubin 0.90 (0.2-1.3) mg/dL AST 25 (14-36) U/L ALT 16 (0-35) U/L Alkaline Phosphatase 73 (38-126) U/L Serum Total Protein 6.8 (6.3-8.2) g/dL Albumin 3.7 (3.5-5.0) g/dL - Radiology Exams Ordered Rad Exams-Entire Visit: Radiology Procedures Category Date Time Status CHEST 1 VIEW (PORTABLE) Stat Exams 09/28/24 22:56 Completed ECHO W/2D AND DOPPLER [US] Routine Exams 09/29/24 03:56 Taken HEAD WITHOUT CONTRAST [CT] Stat Exams 09/28/24 22:57 Completed MRA BRAIN WITHOUT CONTRAST [MRI] Routine Exams 09/30/24 08:40 Ordered MRA NECK WITHOUT CONTRAST [MRI] Routine Exams 09/30/24 08:40 Ordered MRI BRAIN W/O CONTRAST [MRI] Routine Exams 09/30/24 08:40 Ordered Discharge Exam General Appearance: no apparent distress, alert Neurologic Exam: alert, oriented x 3, cooperative, normal mood/affect, nml cerebellar function, sensation nml, No motor deficits Eye Exam: PERRL, EOMI, eyes nml inspection Ears, Nose, Throat Exam: normal ENT inspection, pharynx normal, moist mucous membranes Neck Exam: normal inspection, non-tender, supple, full range of motion Respiratory Exam: normal breath sounds, lungs clear, No respiratory distress Cardiovascular Exam: regular rate/rhythm, normal heart sounds Gastrointestinal/Abdomen Exam: soft, No tenderness, No mass Pelvic Exam: deferred Rectal Exam: deferred Back Exam: normal inspection, normal range of motion, No CVA tenderness, No vertebral tenderness Extremity Exam: normal inspection, normal range of motion Skin Exam: normal color, warm, dry Final Diagnosis/Problem List - Final Discharge Diagnosis/Problem (1) Numbness Current Visit: Yes Status: Acute Assessment & Plan: - Transient left hand and face numbness, concerning for TIA. - CT head negative - Pt refused MRI and MRA brain yesterday d/t anxiety. Agreeable today at 1pm - neurology note reviewed and agree with plan of care Code(s): R20.0 - ANESTHESIA OF SKIN (2) TIA (transient ischemic attack) Current Visit: Yes Status: Acute Assessment & Plan: - Transient left hand and face numbness, concerning for TIA. - CT head negative - Pt refused MRI and MRA brain yesterday d/t anxiety. Agreeable today at 1pm - neurology note reviewed and agree with plan of care - ASA 325mg daily- stopped - atorvastatin 80mg daily - Will consult neurology again after MRI, MRA results are back - ECHO - Lipid panel reviewed - neuro checks Q4 - A1C reviewed and WNL - MRI, MRA negative- awaiting neuro recs then can d/c. - Per neuro OK to d/c on 81 mg ASA and Atorvastatin 80mg daily - F/U appointment OP with neurology made per recs for TIA. Code(s): G45.9 - TRANSIENT CEREBRAL ISCHEMIC ATTACK, UNSPECIFIED (3) Hypothyroidism Current Visit: Yes Status: Chronic Assessment & Plan: Continue home levothyroxine 80 mcg daily Code(s): E03.9 - HYPOTHYROIDISM, UNSPECIFIED (4) Glaucoma Current Visit: Yes Status: Chronic Assessment & Plan: Continue home eyedrops Code(s): H40.9 - UNSPECIFIED GLAUCOMA (5) Morbid obesity Current Visit: Yes Status: Chronic Assessment & Plan: - advised diet and exercise control Code(s): E66.01 - MORBID (SEVERE) OBESITY DUE TO EXCESS CALORIES - Discharge Discharge Date: 09/30/24 Disposition: Home, Self-Care Condition: Stable Prescriptions: New Atorvastatin Calcium [Lipitor 40Mg] 80 mg PO HS 30 Days #30 tablet Continue Levothyroxine Sodium 88 Mcg [Synthroid 88 Mcg] 88 mcg PO DAILY Ergocalciferol (Vitamin D2) [Vitamin D2] 1 tab PO WEEKLY Dorzolamide HCl/Timolol Maleat [Dorzolamide-Timolol Eye Drops] 1 drop BID Brimonidine Tartrate/Timolol [Brimonidine-Timolol 0.2%-0.5%] 1 drop BID Latanoprost 1 drop HS Instructions: Aspirin, Atorvastatin, Stroke - Discharge instructions Follow up with: BROWN FRIEDMAN [NON-STAFF PHY W/O PRIVILEGES] - Office will call patient HEMA MANE NP [NON-STAFF PHY W/O PRIVILEGES] - 10/05/24 10:20 am (HEMA MANE NP WITH ) Forms: Discharge Instructions
[2024-09-30] MEDS: Ativan 2 MG/1 ML VIAL IV ONE (12:14)
[2024-09-30 12:18] VITALS: BP 104/59; PULSE 61; RESP 18
[2024-09-30 12:55] VITALS: TEMP 97.6
--- NOTE | 2024-09-30 13:25 | XRAY ---
Indication: TIA. Negative CT head exam. Sagittal, coronal, and axial MRI brain performed without contrast using T1, T2, FLAIR, diffusion, and ADC sequences. Comparison: None Age-appropriate global atrophy and minimal periventricular degenerative micro-ischemia signal bilaterally. No acute intracranial hemorrhage, abnormal extra-axial fluid collection, or mass effect. Diffusion images negative for restricted signal. Fourth ventricle is midline without hydrocephalus. 7/8 cranial nerve complex bilaterally symmetric. Normal flow-void signal within the major intracerebral circulation. Normal appearing craniocervical junction and sella turcica. Paranasal sinuses are clear. Impression: Normal aging brain including atrophy and degenerative micro-ischemia within normal limits. No acute intracranial abnormalities or evidence for evolving large vessel territorial stroke. MRI concordant with CT head exam.
--- NOTE | 2024-09-30 13:43 | XRAY ---
Indication: TIA. Negative CT head and negative MRI brain exam. Multi-slab 3-D [id number] MRA quechan of [place] performed. Comparison: None Distal internal carotid arteries are bilaterally symmetric without critical stenosis, obstruction, or AV malformation. Normal carotid terminus with normal branching A1 and M1 segments bilaterally. Posterior circulation demonstrate normal MRA appearance to the basilar, left/right posterior cerebral, and left/right superior cerebellar arteries. Impression: Negative MRA quechan of [place].
--- NOTE | 2024-09-30 14:05 | XRAY ---
Indication: TIA. Negative CT head and negative MRI brain exam. Multi slab 3-D [id number] MRA carotid arteries of the neck performed. Comparison: None Right carotid bulb images minimal eccentric arteriosclerotic disease without critical stenosis/obstruction. Remaining visualized common carotid, carotid bulb, internal carotid, and external carotid arteries are normal in MRA appearance bilaterally. Vertebral arteries demonstrates dominant left vertebral artery. No critical stenosis or obstruction. Impression: Minimal arteriosclerotic disease right carotid bulb. Remaining MRA carotid arteries of the neck negative.
--- NOTE | 2024-09-30 15:42 | PCM.NOTE ---
Date and Time: 09/30/247 Subjective Assessment: MS. Brown is a 64 yo F w/pmhx of cataracts, hypothyroidism who presents for L sided lip numbness and L hand numbness. She reports that her sx onset was slightly after 0830 PM 09/28. The sx onset was abrupt and her sx lasted <10 mins. She denies any weakness, speech changes, vision changes, headache. This has never happened before and she denies ever feeling neuro sx in the past. Otherwise has been in her normal state of health. She does not take any AP/AC. She's had no further episodes since then. Objective Exam - Vital Signs Vital Signs: Vital Signs - 24 hr 09/29/24 09/29/24 09/30/24 16:21 20:57 01:00 Temperature 97.2 F 97.8 F Pulse Rate 71 74 74 Respiratory 20 18 18 Rate Blood Pressure Blood Pressure 146/73 133/61 [Right Arm] O2 Sat by Pulse 95 97 Oximetry 09/30/24 09/30/24 09/30/24 05:00 09:00 12:14 Temperature 97.0 F 97.3 F Pulse Rate 60 65 61 Respiratory 18 16 18 Rate Blood Pressure 104/59 Blood Pressure 146/66 142/69 [Right Arm] O2 Sat by Pulse 96 95 Oximetry 09/30/24 12:54 Temperature 97.6 F Pulse Rate 61 Respiratory 18 Rate Blood Pressure Blood Pressure 104/59 [Right Arm] O2 Sat by Pulse 95 Oximetry - Physical Exam General: no acute distress Mental Status: alert, awake and oriented, fund of knowledge, fluent speech, no dysarthria Cranial nerves: extra ocular movements intact, sensation intact, face is symmetric, hearing intact, trapezii intact strong, tongue midline, + Blink Motor: antigravity in all 4 ext Sens:: intact to touch in all 4 Movement:: no tremors noted MSR:: unable to assess through telemedicine, no clonus noted. Gait: deferred - NIHSS Stroke Scale Date Completed: 09/30/24 Time Stroke Scale Completed: 08: Objective Data - Labs Lab/Micro Results: Lab Results-Last 24 Hours 09/30/24 09/30/24 Range/Units 05:08 05:08 WBC 5.9 (3.98-10.04) x10^3/uL RBC 3.44 L (3.93-5.22) x10^6/uL Hgb 11.4 (11.2-15.7) g/dL Hct 34.5 (34.1-44.9) % MCV 100.3 H (79.4-94.8) fL MCH 33.1 H (25.6-32.2) pg MCHC 33.0 (32.2-35.5) g/dL RDW 12.9 (11.7-14.4) % Plt Count 204 (182-369) x10^3/uL MPV 11.3 (9.4-12.3) fL Gran % 53.0 (34.0-71.1) % Immature Gran % (Auto) 0.2 (0.001-0.429) % Nucleat RBC Rel Count 0.0 (0.00-0.2) % Eos # (Auto) 0.13 (0.04-0.36) x10^3/uL Immature Gran # (Auto) 0.01 (0.001-0.031) x10^3u/L Absolute Lymphs (auto) 2.12 (1.18-3.74) x10^3/uL Absolute Monos (auto) 0.47 (0.24-0.86) x10^3/uL Absolute Nucleated RBC 0.00 (0.00-0.012) x10^3u/L Lymphocytes % 36.1 (19.3-51.7) % Monocytes % 8.0 (4.7-12.5) % Eosinophils % 2.2 (0.7-5.8) % Basophils % 0.5 (0.1-1.2) % Absolute Granulocytes 3.11 (1.56-6.13) x10^3/uL Basophils # 0.03 (0.01-0.08) x10^3/uL Sodium 141 (135-145) mmol/L Potassium 3.9 (3.5-5.1) mmol/L Chloride 105 (98-107) mmol/L Carbon Dioxide 30 (22-30) mmol/L Anion Gap 10.1 (5-15) MEQ/L BUN 19 H (7-17) mg/dL Creatinine 0.99 (0.52-1.04) mg/dL Estimated GFR 63.3 ML/MIN Glucose 106 (74-106) mg/dL Calcium 8.7 (8.4-10.2) mg/dL Total Bilirubin 0.90 (0.2-1.3) mg/dL AST 25 (14-36) U/L ALT 16 (0-35) U/L Alkaline Phosphatase 73 (38-126) U/L Serum Total Protein 6.8 (6.3-8.2) g/dL Albumin 3.7 (3.5-5.0) g/dL - Radiology Orders Radiology Orders: Radiology Procedures Category Date Time Status CHEST 1 VIEW (PORTABLE) Stat Exams 09/28/24 22:56 Completed ECHO W/2D AND DOPPLER [US] Routine Exams 09/29/24 03:56 Taken HEAD WITHOUT CONTRAST [CT] Stat Exams 09/28/24 22:57 Completed MRA BRAIN WITHOUT CONTRAST [MRI] Routine Exams 09/30/24 08:40 Completed MRA NECK WITHOUT CONTRAST [MRI] Routine Exams 09/30/24 08:40 Completed MRI BRAIN W/O CONTRAST [MRI] Routine Exams 09/30/24 08:40 Completed - MRI Impressions MRA brain w/o contrast Status: image reviewed by me (no occlusion or sig stenosis) MRI brain w/o contrast Status: image reviewed by me (no acute infarct) Other Status: image reviewed by me (MRA Neck: no sig stenosis or occlusion) Assessment & Plan (1) TIA (transient ischemic attack) Current Visit: Yes Status: Acute Code(s): G45.9 - TRANSIENT CEREBRAL ISCHEMIC ATTACK, UNSPECIFIED (2) Morbid obesity Current Visit: Yes Status: Chronic Code(s): E66.01 - MORBID (SEVERE) OBESITY DUE TO EXCESS CALORIES (3) Hyperlipidemia Current Visit: Yes Status: Acute Code(s): E78.5 - HYPERLIPIDEMIA, UNSPECIFIED (4) Hypothyroidism Current Visit: Yes Status: Chronic Code(s): E03.9 - HYPOTHYROIDISM, UNSPECIFIED - Encounter Encounter: Assessment: Symptoms consistent with TIA. MRIs negative. TTE pending. Recommendations: -No further inpatient neurologic workup -Can discharge on ASA 81mg qd -Atorvastatin 80mg qhs for goal LDL <70 -TTE read pending -PT/OT Discussed with primary team, Reviewed prior records and neuroimaging, discussed diagnosis and treatment with patient and/or family, and discussed plan of care with primary team. Enrike Flannery DO This entire encounter was performed via telemedicine. Patient/guardian gave verbal or written consent. Time to video: [id number] "
== END 2024-09-30 17:00 | disposition home or self-care (01) ==
LOC: ED 21:05 → MED SURG 09-29 01:43
PROVIDERS: ADMIT Internal Medicine; ATTEND Internal Medicine
DX: G45.9 Transient cerebral ischemic attack, unspecified (principal); R20.0 Anesthesia of skin; E03.9 Hypothyroidism, unspecified; H40.9 Unspecified glaucoma; E66.01 Morbid (severe) obesity due to excess calories; E78.5 Hyperlipidemia, unspecified; Z79.899 Other long term (current) drug therapy
CPT/HCPCS: 36415; 70450; 70544; 70547; 70551; 71045; 80048; 80053; 80061; 81001; 83036; 83721; 83880; 84443; 84484; 85025; 85027; 93005; 93041; 93268; 93306; 94760; 96360; 99285; G0378; Q3014; J2060; A9270-GY